=== PATIENT | female | born 1970 | race Caucasian/White ===

== ENCOUNTER 2017-09-30 16:05 | Outpatient (CLI) ==
[2015-08-08 23:22] VITALS: BMI 30.9
[2017-09-30 16:15] LABS: BASOPHILS % (AUTO) 0.3 % (0.0-3.0); EOSINOPHILS # (AUTO) 0.1 K/ul (0.0-0.7); EOSINOPHILS % (AUTO) 2.2 % (0.0-7.0); HEMATOCRIT 42.6 % (37.0-47.0); HEMOGLOBIN 14.8 g/dl (12.0-16.0); IMMATURE GRANULOCYTE % (AUTO) 0.3 % (0.0-5.0); LYMPHOCYTES # (AUTO) 2.1 K/uL (0.60-3.4); LYMPHOCYTES % (AUTO) 34.9 (10.0-50.0); MEAN CORPUSCULAR HEMOGLOBIN 30.2 pg (27.0-31.0); MEAN CORPUSCULAR HGB CONC 34.7 (31.8-35.4); MEAN CORPUSCULAR VOLUME 86.9 fl (81.0-99.0); MONOCYTES # (AUTO) 0.5 K/uL (0.4-2.0); MONOCYTES % (AUTO) 8.3 (0-10); NEUTROPHILS # (AUTO) 3.2 K/ul (2.0-6.9); PLATELET COUNT 213 10^3/uL (140-440); WHITE BLOOD COUNT 5.93 K/ul (4.6-10.2)
[2017-09-30 16:46] LABS: ALBUMIN 3.8 g/dL (3.4-5.0); ALBUMIN/GLOBULIN RATIO 0.97; ANION GAP 13.2; BILIRUBIN,TOTAL 0.48 mg/dL (0.00-1.20); BUN/CREATININE RATIO 15.49; CALCIUM 9.7 mg/dL (8.2-10.2); CHOL/HDL RATIO 5.6 (4.5-5.5); CREATININE 0.71 mg/dL (0.60-1.30); POTASSIUM 3.2 mmol/L (3.5-5.10); TOTAL PROTEIN 7.7 g/dL (6.4-8.2)
== END 2017-09-30 16:06 | disposition home or self-care (01) ==
LOC: LAB 16:05
PROVIDERS: ATTEND Emergency Medicine
DX: E78.5 Hyperlipidemia, unspecified (principal); F33.1 Major depressive disorder, recurrent, moderate; I10 Essential (primary) hypertension
CPT/HCPCS: 36415; 80053; 80061; 84443; 85025

== ENCOUNTER 2018-01-29 15:00 | Outpatient (CLI) ==
[2015-08-08 23:22] VITALS: BMI 30.9
== END 2018-01-29 15:01 | disposition home or self-care (01) ==
LOC: RHC-LAB 15:00
PROVIDERS: ATTEND Emergency Medicine
DX: E78.5 Hyperlipidemia, unspecified (principal); I10 Essential (primary) hypertension; F33.1 Major depressive disorder, recurrent, moderate
CPT/HCPCS: 36415; 80053; 80061; 84443; 85025

== ENCOUNTER 2018-03-09 14:17 | Outpatient (CLI) ==
[2015-08-08 23:22] VITALS: BMI 30.9
== END 2018-03-09 14:18 | disposition home or self-care (01) ==
LOC: RHC-LAB 14:17
PROVIDERS: ATTEND Nurse Practitioner Family
DX: R74.8 Abnormal levels of other serum enzymes (principal)
CPT/HCPCS: 36415; 80053

== ENCOUNTER 2018-05-17 12:12 | Outpatient (CLI) ==
[2015-08-08 23:22] VITALS: BMI 30.9
== END 2018-05-17 12:13 | disposition home or self-care (01) ==
LOC: LAB 12:12
PROVIDERS: ATTEND Emergency Medicine
DX: E78.5 Hyperlipidemia, unspecified (principal); I10 Essential (primary) hypertension; F33.1 Major depressive disorder, recurrent, moderate
CPT/HCPCS: 36415; 80053; 80061; 84443; 85025

== ENCOUNTER 2018-05-28 08:08 | Outpatient (CLI) ==
[2015-08-08 23:22] VITALS: BMI 30.9
--- NOTE | 2018-05-28 10:06 | US ---
EXAM: Ultrasound abdomen limited HISTORY: Abnormal levels of other serum enzymes, elevated liver enzymes COMPARISON: None TECHNIQUE: Limited ultrasound abdomen right upper quadrant was performed FINDINGS: Visualized portion pancreas appears normal. Portions of the pancreas obscured secondary b owel gas shadowing. Liver diffusely increased in echogenicity. Liver normal in size. Main portal v ein patent with direction of flow. Patient status post cholecystectomy. No biliary duct dilation wi th common bile duct measuring 0.4 cm. IMPRESSION: 1. Echogenic liver, may represent hepatic steatosis and/or hepatic parenchymal disease. 2. Status post cholecystectomy. No biliary duct dilation.
== END 2018-05-28 08:09 | disposition home or self-care (01) ==
LOC: RAD 08:08
PROVIDERS: ATTEND Emergency Medicine
DX: R74.8 Abnormal levels of other serum enzymes (principal)

== ENCOUNTER 2018-08-24 12:26 | Outpatient (CLI) ==
[2015-08-08 23:22] VITALS: BMI 30.9
== END 2018-08-24 12:27 | disposition home or self-care (01) ==
LOC: RHC-LAB 12:26
PROVIDERS: ATTEND Nurse Practitioner Family
DX: E03.9 Hypothyroidism, unspecified (principal); R79.89 Other specified abnormal findings of blood chemistry
CPT/HCPCS: 36415; 84443

== ENCOUNTER 2019-01-06 08:06 | Outpatient (CLI) ==
[2015-08-08 23:22] VITALS: BMI 30.9
== END 2019-01-06 08:07 | disposition home or self-care (01) ==
LOC: RHC-LAB 08:06
PROVIDERS: ATTEND Nurse Practitioner Family
DX: E03.9 Hypothyroidism, unspecified (principal); I10 Essential (primary) hypertension; E78.5 Hyperlipidemia, unspecified
CPT/HCPCS: 36415; 80053; 80061; 84443; 85025

== ENCOUNTER 2019-01-21 21:25 | Emergency (ER) ==
[2019-01-21 21:36] VITALS: TEMP 98.7; BMI 33.0
[2019-01-21 21:49] VITALS: BP 151/94
--- NOTE | 2019-01-21 23:45 | ED.PDOC ---
General ED Provider: Dr. DIAMANTE MONTILLA Chief Complaint: Hypertension Stated Complaint: noted that her blood pressure was high this morning. Had some dizziness but not now. worried about her blood pressure was in the 150s. Denies any chest pain or shortness of breath. Time Seen by Physician: 22:00 Mode of Arrival: Walk-In Information Source: Patient, Family Primary Care Provider: VIVIAN ESCOBAR Nursing and Triage Documentation Reviewed and Agree: Yes Does patient meet sepsis criteria?: No System Inflammatory Response Syndrome: Not Applicable Sepsis Protocol: For patient's 13 years and over: Temp is 96.8 and below OR 101 and greater Pulse >90 BPM Resp >20/minute Acutely Altered Mental Status Are patient's symptoms suggestive of a new infection, such as: -Pneumonia -Skin, Soft Tissue -Endocarditis -UTI -Bone, Joint Infection -Implantable Device -Acute Abdominal Infection -Wound Infection -Meningitis -Blood Stream Catheter Infection -Unknown Miscellaneous Complaint Exam - Complex/Multi-System Complaint/Exam Onset/Duration: this morning Symptoms Are: Still present Initial Severity: Mild Current Severity: Mild Associated Signs and Symptoms: Reports: Dizziness Respiratory Distress: None JVD Present: No Tachypnea Present: No Stridor Present: No Abdominal Findings: Present: Normal findings Glascow Coma Scale (see protocol): 15 Meningeal Signs Positive: No Focal Weakness: Present: None Focal Sensory Loss: Present: None Gait: Normal Gag Reflex Present: No Babinski Sign: Negative Right, Negative Left Skin Findings: Present: Normal findings Joint Swelling Present: No In-Dwelling Device Present: No Review of Systems - Review Of Systems Constitutional: Reports: No symptoms Eyes: Reports: No symptoms Ears, Nose, Mouth, Throat: Reports: No symptoms Respiratory: Reports: No symptoms Cardiac: Reports: No symptoms GI: Reports: No symptoms : Reports: No symptoms Musculoskeletal: Reports: No symptoms Skin: Reports: No symptoms Neurological: Reports: Anxiety Endocrine: Reports: No symptoms Hematologic/Lymphatic: Reports: No symptoms All Other Systems: Reviewed and Negative Past Medical History - Past Medical History Endocrine: Reports: Hypothyroid Cardiovascular: Reports: Hypertension Respiratory: Reports: None Hematological: Reports: None Gastrointestinal: Reports: None Genitourinary: Reports: None Neuro/Psych: Reports: None Musculoskeletal: Reports: None Cancer: Reports: None Last Menstrual Period: 2013 - Surgical History General Surgical History: Reports: Tubal ligation, , Cholecystectomy, Other (Ablation.) - Family History Family History: Reports: None - Social History Smoking Status: Never smoker Hx Substance Use: No Alcohol Screening: None - Immunizations Tetanus Shot up to Date: Yes Physical Exam - Physical Exam Appearance: Well-appearing, Obese Eyes: MARIANNA, EOMI, Conjunctiva clear ENT: Nose normal, Oropharynx normal Neck: Supple Respiratory: Airway patent, Breath sounds clear, Breath sounds equal, Respirations nonlabored Cardiovascular: RRR, Pulses normal, No rub, No murmur GI/: Soft, Nontender, No masses, Bowel sounds normal, No Organomegaly Musculoskeletal: Normal strength, ROM intact, No edema, No calf tenderness Skin: Warm, Dry, Normal color Neurological: Sensation intact, Motor intact, Cranial nerves intact, Alert, Oriented Psychiatric: Anxious Re-Evaluation - Re-Evaluation Time of Re-Evaluation: 23:44 Vital Signs Stable: Yes (115/65) Pain Level: none Critical Care Note - Critical Care Note Total Time (mins): 0 Course - Course Hematology/Chemistry: 01/21/19 22:50 Orders, Labs, Meds: Lab Review 01/21/19 22:50 Sodium 141.6 Potassium 3.52 Chloride 103.9 Carbon Dioxide 27.7 Anion Gap 13.52 BUN 17.4 H Creatinine 0.66 Estimated GFR (MDRD) 95.00 BUN/Creatinine Ratio 26.36 Glucose 103.6 Calcium 9.19 Total Bilirubin 0.51 AST 59.3 H ALT 73.5 H Alkaline Phosphatase 111.3 Total Protein 7.69 Albumin 4.32 Globulin 3.37 Albumin/Globulin Ratio 1.28 TSH 4.280 Orders Category Date Time Status COMPREHENSIVE METABOLIC PANEL Stat LAB 01/21/19 22:50 Completed TSH [THYROID STIMULATING HORMONE] Stat LAB 01/21/19 22:50 Completed Vital Signs: Temp Pulse Resp BP Pulse Ox 01/21/19 21:49 90 151/94 H 01/21/19 21:48 92 H 159/86 H 01/21/19 21:45 98 H 143/83 H 01/21/19 21:26 98.7 F 99 H 20 168/107 H 98 Departure - Departure Time of Disposition: 23:45 Disposition: HOME SELF-CARE Discharge Problem: Hypertension Qualifiers: Hypertension type: essential hypertension Qualified Code(s): I10 - Essential ( primary) hypertension Instructions: Chronic Hypertension (ED) Condition: Stable Pt referred to PMD for follow-up: Yes IPMP verified?: No Additional Instructions: Follow up with PCP in 3 days Continue your blood pressure medication as prescribed. Allergies/Adverse Reactions: Allergies No Known Drug Allergies Adverse Reaction (Verified 01/21/19 21:33) Home Medications: Ambulatory Orders Ibuprofen 800 mg PO TID #30 tablet 08/08/15 Estradiol 1 mg PO d 09/30/17 Disposition Discussed With: Patient, Family
== END 2019-01-21 23:51 | disposition home or self-care (01) ==
LOC: ED 21:25
DX: I10 Essential (primary) hypertension (principal); E03.9 Hypothyroidism, unspecified; Z79.899 Other long term (current) drug therapy
CPT/HCPCS: 36415; 80053; 84443; 99282

== ENCOUNTER 2019-02-11 07:20 | Outpatient (CLI) ==
--- NOTE | 2019-02-11 09:22 | US ---
EXAM: Limited abdominal ultrasound. History: Fatty liver. Comparison: Abdominal ultrasound 05/28/2018 Technique: Multiple sonographic images through the abdomen were obtained. Color duplex Doppler was used to interrogate vascular flow. Findings: Status post cholecystectomy. No abdominal ascites. Common bile duct measures 0.4 cm in c aliber. The pancreas demonstrates no gross abnormality. Limited visualization of the right kidney d emonstrates no evidence for hydronephrosis. There is antegrade flow within the main portal vein. Th e liver is slightly echogenic compared to the adjacent right renal cortex. No focal liver lesions. Impression: Probable mild fatty liver. Correlate with liver function tests. Status post cholecyste ctomy
== END 2019-02-11 07:21 | disposition home or self-care (01) ==
LOC: RAD 07:20
PROVIDERS: ATTEND Nurse Practitioner Family
DX: K76.0 Fatty (change of) liver, not elsewhere classified (principal); R94.5 Abnormal results of liver function studies; R74.8 Abnormal levels of other serum enzymes

== ENCOUNTER 2019-02-14 08:13 | Outpatient (CLI) | END 2019-02-14 08:14 | disposition home or self-care (01) | LOC: RHC-LAB 08:13 | PROVIDERS: ATTEND Nurse Practitioner Family | DX: R94.5 Abnormal results of liver function studies (principal); R74.8 Abnormal levels of other serum enzymes; E87.6 Hypokalemia; K76.0 Fatty (change of) liver, not elsewhere classified; I10 Essential (primary) hypertension; E03.9 Hypothyroidism, unspecified | CPT/HCPCS: 36415; 80053; 80074; 82977; 84443; 85025 ==

== ENCOUNTER 2019-08-03 08:15 | Outpatient (CLI) | END 2019-08-03 08:16 | disposition home or self-care (01) | LOC: RHC-LAB 08:15 | PROVIDERS: ATTEND Nurse Practitioner Family | DX: E87.6 Hypokalemia (principal); E03.9 Hypothyroidism, unspecified; I10 Essential (primary) hypertension | CPT/HCPCS: 36415; 80053; 80061; 84443; 85025 ==